=== PATIENT | male | born 1965 | race Caucasian/White ===

== ENCOUNTER 2016-03-30 23:17 | Emergency (ER) | payer BC ==
[~2016-03-30] VITALS: Ht 188 cm; Wt 113.3 kg
[~2016-03-30 23:17] MED LIST: ASPIR-LOW81 MG PO; CLOPIDOGREL75 MG PO; DOXEPIN HCL50 MG PO; FLEXERIL10 MG PO; LISINOPRIL2.5 MG PO; LITE COAT ASPI325 M1 PO; LOPRESSOR25 MG PO; METHOCARBAMOL500 MG PO; NAPROSYN500 MG PO; NITROSTAT0.4 MG SL; PEPCID20 MG PO; PLAVIX75 MG PO; PRAVASTATIN SOD80 MG PO; PRILOSEC40 MG PO; PROVENTIL,2.5 MG/3 M IH; SPIRIVA1 INHALATI IH; TRAMADOL HCL50 MG PO; ZESTRIL2.5 MG PO; ZITHROMAX500 MG PO; ZOFRAN4 MG PO
[2016-03-31 00:36] LABS: HEMATOCRIT 43.9 % (38.0-50.0); MCHC 34.9 G/DL (30.0-36.0); MCV 91.8 FL (86-99); MEAN PLAT.VOLUME 9.6 uM^3 (9.0-12.4); PLATELET COUNT 218 K/uL (156-360); RBC DIS.WIDTH-CV 13.2 % (11.8-14.6); RBC DIS.WIDTH-SD 43.3 % (39-53); RED BLOOD COUNT 4.78 M/uL (4.00-5.50); WHITE BLOOD COUNT 11.9 K/uL (4.1-10.2)
[2016-03-31 00:37] LABS: BASOPHIL COUNT 0.1 K/uL (0-0.1); EOSINOPHIL (%) 5.1 % (0-5); EOSINOPHIL COUNT 0.6 K/uL (0-0.3); IMMATURE GRANULOCYTE (%) 0.2 % (0.0-0.7); IMMATURE GRANULOCYTE COUNT 0.2 K/uL; LYMPHOCYTE COUNT 4.3 K/uL (1.0-2.8); MONOCYTE (%) 10.7 % (3-12); MONOCYTE COUNT 1.3 K/uL (0-0.8); NEUTROPHIL (%) 47.1 % (45-76); NEUTROPHIL COUNT 5.6 K/uL (1.8-6.4)
[2016-03-31 00:47] LABS: CHLORIDE 110 mEq/L (99-109); POTASSIUM 4.3 mEq/L (3.7-5.4); SODIUM 145 mEq/L (136-147)
[2016-03-31 00:48] LABS: GLUCOSE 114 mg/dL (70-99)
[2016-03-31 00:50] LABS: ANION GAP 11 MEQ/L (2-14)
[2016-03-31 00:52] LABS: GFR ESTIMATE (CALCULATED) > 59 mL/min/
[2016-03-31 00:53] LABS: UREA NITROGEN (BUN) 15 mg/dL (9-23)
[2016-03-31] MEDS ORDERED: BENADRYL ALLERG25 MG PO (01:28)
[2016-03-31 01:49] VITALS: BP 122/71
== END 2016-03-31 01:51 | disposition home or self-care (01) ==
LOC: EME 23:17
PROVIDERS: Emergency Medicine
DX: T78.40XA Allergy, unspecified, initial encounter (principal); F17.200 Nicotine dependence, unspecified, uncomplicated; Z79.82 Long term (current) use of aspirin; Z79.02 Long term (current) use of antithrombotics/antiplatelets
CPT/HCPCS: 80048; 85025; 99281; 99285; J1100; J1200; J7030; S0028

== ENCOUNTER 2016-08-28 12:32 | Observation (INO) | payer SELFPAY ==
[~2016-08-28] VITALS: Ht 188 cm; Wt 112.4 kg
[~2016-08-28 12:32] MED LIST changes: +BENADRYL ALLERG25 MG PO
[2016-08-28 13:03] LABS: BASOPHIL COUNT 0.1 K/uL (0-0.1); EOSINOPHIL (%) 7.5 % (0-5); EOSINOPHIL COUNT 0.7 K/uL (0-0.3); HEMATOCRIT 46.7 % (38.0-50.0); IMMATURE GRANULOCYTE (%) 0.3 % (0.0-0.7); INSTRUMENT ABS NEUTROPHIL CT 4.4 K/uL; LYMPHOCYTE COUNT 2.8 K/uL (1.0-2.8); MCH 31.8 PG (29.0-34.0); MCHC 34.7 G/DL (30.0-36.0); MCV 91.6 FL (86-99); MONOCYTE (%) 9.4 % (3-12); MONOCYTE COUNT 0.8 K/uL (0-0.8); NEUTROPHIL (%) 50.2 % (45-76); NEUTROPHIL COUNT 4.4 K/uL (1.8-6.4); PLATELET COUNT 225 K/uL (156-360); RBC DIS.WIDTH-CV 12.3 % (11.8-14.6); RBC DIS.WIDTH-SD 41.8 % (39-53); WHITE BLOOD COUNT 8.7 K/uL (4.1-10.2)
[2016-08-28 13:14] LABS: INTER. NORMALIZED RATIO 1.1; PROTHROMBIN TIME 10.7 (9.2-11.2); PTT 27.1 (25-32)
[2016-08-28 13:17] LABS: CHLORIDE 104 mEq/L (99-109); POTASSIUM 4.2 mEq/L (3.7-5.4); SODIUM 140 mEq/L (136-147)
[2016-08-28 13:19] LABS: GLUCOSE 110 mg/dL (70-99)
[2016-08-28 13:21] LABS: ANION GAP 8 MEQ/L (2-14)
[2016-08-28 13:23] LABS: GFR ESTIMATE (CALCULATED) > 59 mL/min/
[2016-08-28 13:24] LABS: UREA NITROGEN (BUN) 14 mg/dL (9-23)
[2016-08-28 13:28] LABS: TROP-I INTERPRETATION NEGATIVE; TROPONIN-I < 0.01 ng/mL (0.0-0.30)
[2016-08-28 16:35] VITALS: BP 117/67
[2016-08-28 20:05] LABS: TROP-I INTERPRETATION NEGATIVE; TROPONIN-I 0.01 ng/mL (0.0-0.30)
[2016-08-28 21:27] VITALS: BP 114/68
[2016-08-29 00:20] VITALS: BP 121/74
[2016-08-29 02:20] LABS: TROP-I INTERPRETATION NEGATIVE; TROPONIN-I < 0.01 ng/mL (0.0-0.30)
[2016-08-29 04:31] VITALS: BP 107/62
[2016-08-29 07:51] VITALS: BP 144/63
[2016-08-29] MEDS ORDERED: PROTONIX40 MG PO (11:05)
[2016-08-29] MEDS ORDERED: LISINOPRIL2.5 MG PO (11:05)
[2016-08-29] MEDS ORDERED: NITROSTAT0.4 MG SL (11:05)
[2016-08-29] MEDS ORDERED: NICOTINE PATCH1 EAC2 TD (11:05)
[2016-08-29] MEDS ORDERED: LOPRESSOR25 MG PO (11:05)
[2016-08-29] MEDS ORDERED: PRAVASTATIN SOD80 MG PO (11:05)
[2016-08-29] MEDS ORDERED: SPIRIVA RESPIMAT4 GM IH (11:05)
[2016-08-29] MEDS ORDERED: CLOPIDOGREL75 MG PO (11:05)
[2016-08-29] MEDS ORDERED: ASPIRIN EC325 MG PO (11:05)
[2016-08-29] MEDS ORDERED: VENTOLIN HFA18 GM IH (11:06)
== END 2016-08-29 12:15 | disposition home or self-care (01) ==
LOC: EME 12:32 → EDOF 14:42 → 5WEST 14:42
PROVIDERS: Emergency Medicine; Nurse Practitioner Adult Health
DX: R07.9 Chest pain, unspecified (principal); I25.10 Atherosclerotic heart disease of native coronary artery without angina pectoris; I10 Essential (primary) hypertension; Z95.5 Presence of coronary angioplasty implant and graft; Z72.0 Tobacco use; F32.9 Major depressive disorder, single episode, unspecified; J44.9 Chronic obstructive pulmonary disease, unspecified; E78.5 Hyperlipidemia, unspecified; K21.9 Gastro-esophageal reflux disease without esophagitis; Z91.120 Patient's intentional underdosing of medication regimen due to financial hardship
CPT/HCPCS: 71010; 80048; 84484; 85025; 85610; 85730; 93005; 94640; 99202; 99281; 99285; G0378; S0028

== ENCOUNTER 2017-01-08 13:31 | Observation (INO) | payer OTHER ==
[~2017-01-08] VITALS: Ht 188 cm; Wt 100.0 kg
[~2017-01-08 13:31] MED LIST changes: +ASPIRIN EC325 MG PO; +NICOTINE PATCH1 EAC2 TD; +PROTONIX40 MG PO; +SPIRIVA RESPIMAT4 GM IH; +VENTOLIN HFA18 GM IH
[2017-01-08 14:32] LABS: HEMATOCRIT 46.3 % (38.0-50.0); MCH 32.3 PG (29.0-34.0); MCHC 34.6 G/DL (30.0-36.0); MCV 93.3 FL (86-99); RBC DIS.WIDTH-CV 13.7 % (11.8-14.6); RBC DIS.WIDTH-SD 47.1 % (39-53); RED BLOOD COUNT 4.96 M/uL (4.00-5.50); WHITE BLOOD COUNT 10.9 K/uL (4.1-10.2)
[2017-01-08 14:41] LABS: CHLORIDE 105 mEq/L (99-109); POTASSIUM 3.9 mEq/L (3.7-5.4); SODIUM 140 mEq/L (136-147)
[2017-01-08 14:43] LABS: GLUCOSE 89 mg/dL (70-99)
[2017-01-08 14:44] LABS: ANION GAP 9 MEQ/L (2-14)
[2017-01-08 14:46] LABS: GFR ESTIMATE (CALCULATED) > 59 mL/min/
[2017-01-08 14:47] LABS: UREA NITROGEN (BUN) 15 mg/dL (9-23)
[2017-01-08 14:54] LABS: TROP-I INTERPRETATION NEGATIVE; TROPONIN-I < 0.01 ng/mL (0.0-0.30)
[2017-01-08] MEDS ORDERED: METOPROLOL TART25 MG PO (15:33)
[2017-01-08] MEDS ORDERED: LISINOPRIL2.5 MG PO (15:33)
[2017-01-08] MEDS ORDERED: LO-DOSE ASPIRIN81 M2 PO (15:34)
[2017-01-08] MEDS ORDERED: PROTONIX40 MG PO (15:37)
[2017-01-08 15:39] LABS: HEMATOLOGY COMMENT 1 SN; MEAN PLAT.VOLUME 10.1 uM^3 (9.0-12.4); PLAT.SUFFICIENCY ADEQUATE; PLATELET COUNT 248 K/uL (156-360)
[2017-01-08 16:48] LABS: SAMPLE HEMOLYSIS CHECK 0; SAMPLE ICTERIC CHECK 0; SAMPLE LIPEMIA CHECK 0
[2017-01-08 16:54] LABS: HDL CHOLESTEROL 33 MG/DL (Desirable>=40); LDL CHOLESTEROL 72 mg/dL (Desirable<100); NON-HDL CHOLESTEROL 89 mg/dL (Desirable<160); TOTAL CHOLESTEROL 122 mg/dL (Desirable<200); TRIGLYCERIDES 86 MG/DL (Normal: <150)
[2017-01-08 17:21] VITALS: BP 123/75
[2017-01-08 19:45] VITALS: BP 102/59
[2017-01-08 21:13] LABS: TROP-I INTERPRETATION NEGATIVE; TROPONIN-I < 0.01 ng/mL (0.0-0.30)
[2017-01-09] VITALS: BP 103/55
[2017-01-09 04:00] VITALS: BP 108/59
[2017-01-09 04:06] LABS: TROP-I INTERPRETATION NEGATIVE; TROPONIN-I < 0.01 ng/mL (0.0-0.30)
[2017-01-09 07:47] VITALS: BP 109/63
[2017-01-09] MEDS ORDERED: NICOTINE PATCH1 EAC2 TD (10:16)
[2017-01-09] MEDS ORDERED: CLONAZEPAM0.5 MG PO (10:24)
[2017-01-09 10:45] VITALS: BP 116/76
== END 2017-01-09 12:20 | disposition home or self-care (01) ==
LOC: EME → EDBD 13:31 → EDOF 15:25 → 5WEST 15:25 → ENRESERV 15:26 → 5WEST 17:01
PROVIDERS: Emergency Medicine; Internal Medicine
DX: R07.9 Chest pain, unspecified (principal); I25.10 Atherosclerotic heart disease of native coronary artery without angina pectoris; I25.2 Old myocardial infarction; Z95.5 Presence of coronary angioplasty implant and graft; E78.5 Hyperlipidemia, unspecified; I10 Essential (primary) hypertension; J44.9 Chronic obstructive pulmonary disease, unspecified; F17.210 Nicotine dependence, cigarettes, uncomplicated; K21.9 Gastro-esophageal reflux disease without esophagitis; F32.9 Major depressive disorder, single episode, unspecified; Z82.49 Family history of ischemic heart disease and other diseases of the circulatory system; Z83.3 Family history of diabetes mellitus; Z84.1 Family history of disorders of kidney and ureter; Z88.5 Allergy status to narcotic agent; Z88.6 Allergy status to analgesic agent
CPT/HCPCS: 71010; 80048; 80061; 84484; 85027; 93005; 94640; 99281; 99284; G0378; J1650

== ENCOUNTER 2017-10-06 06:14 | Observation (INO) | payer OTHER ==
[~2017-10-06] VITALS: Ht 193 cm; Wt 109.3 kg
[~2017-10-06 06:14] MED LIST changes: +CLONAZEPAM0.5 MG PO; +LO-DOSE ASPIRIN81 M2 PO; +LOPRESSOR50 MG PO
[2017-10-06 06:57] LABS: HEMOGLOBIN 15.7 G/DL (12.5-16.6); MCH 32.3 PG (29.0-34.0); MCHC 34.9 G/DL (30.0-36.0); MCV 92.6 FL (86-99); PLATELET COUNT 207 K/uL (156-360); RBC DIS.WIDTH-CV 13.3 % (11.8-14.6); RBC DIS.WIDTH-SD 45.2 % (39-53); RED BLOOD COUNT 4.86 M/uL (4.00-5.50); WHITE BLOOD COUNT 8.8 K/uL (4.1-10.2)
[2017-10-06 07:29] LABS: CHLORIDE 108 MEQ/L (99-109); GFR ESTIMATE (CALCULATED) > 59 mL/min/ (58.99-99999); GLUCOSE 105 mg/dL (70-99); POTASSIUM 4.1 MEQ/L (3.7-5.4); SODIUM 140 MEQ/L (136-147); UREA NITROGEN (BUN) 18 mg/dL (9-23)
[2017-10-06 07:31] LABS: TROP-I INTERPRETATION NEGATIVE; TROPONIN-I < 0.01 ng/mL (0.0-0.30)
[2017-10-06] MEDS ORDERED: PEPCID40 MG PO (08:11)
[2017-10-06] MEDS ORDERED: SPIRIVA RESPIMAT4 GM IH (08:11)
[2017-10-06] MEDS ORDERED: FLONASE16 G1 BOTH NARES (08:11)
[2017-10-06] MEDS ORDERED: CITALOPRAM HBR20 MG PO (08:12)
[2017-10-06] MEDS ORDERED: ERGOCALCIF50000 UNIT PO (08:12)
[2017-10-06] MEDS ORDERED: SYMBICORT60 INHALAT IH (08:13)
[2017-10-06] MEDS ORDERED: [UNRECOGNIZED DRUG - OTHER] NS (08:14)
[2017-10-06 09:30] VITALS: BP 116/68
[2017-10-06 10:32] LABS: HDL CHOLESTEROL 35 MG/DL (Desirable>=40); LDL CHOLESTEROL 155 mg/dL (Desirable<100); NON-HDL CHOLESTEROL 170 mg/dL (Desirable<160); TOTAL CHOLESTEROL 205 mg/dL (Desirable<200); TRIGLYCERIDES 74 MG/DL (Normal: <150)
[2017-10-06 11:25] VITALS: BP 105/61
[2017-10-06 12:34] LABS: TROP-I INTERPRETATION NEGATIVE; TROPONIN-I < 0.01 ng/mL (0.0-0.30)
[2017-10-06 15:11] VITALS: BP 99/57
[2017-10-06 19:20] LABS: TROP-I INTERPRETATION NEGATIVE; TROPONIN-I < 0.01 ng/mL (0.0-0.30)
[2017-10-06 20:05] VITALS: BP 134/71
== END 2017-10-06 21:12 | disposition home or self-care (01) ==
LOC: EME → EDBD 06:14 → EDSEX 06:14 → EDOF 08:33 → 4SOUTH 09:19
PROVIDERS: Emergency Medicine; Hospitalist
DX: R07.9 Chest pain, unspecified (principal); R07.81 Pleurodynia; I25.10 Atherosclerotic heart disease of native coronary artery without angina pectoris; Z95.5 Presence of coronary angioplasty implant and graft; I10 Essential (primary) hypertension; E78.5 Hyperlipidemia, unspecified; F17.210 Nicotine dependence, cigarettes, uncomplicated; J44.9 Chronic obstructive pulmonary disease, unspecified; K21.9 Gastro-esophageal reflux disease without esophagitis; I25.2 Old myocardial infarction; Z82.49 Family history of ischemic heart disease and other diseases of the circulatory system; Z83.3 Family history of diabetes mellitus; Z88.5 Allergy status to narcotic agent
CPT/HCPCS: 71045; 80048; 80061; 83880; 84484; 85027; 93005; 94640; 94799; 99281; 99285; G0378; J1650; S0028